=== PATIENT | female | born 2000 | race Hispanic/Latino ===

== ENCOUNTER 2022-04-21 00:35 | Emergency (ER) | payer OTHER ==
[2022-04-21] MEDS ORDERED: LEVALBUTEROL 1.25 MG/3 ML NEB ONE (00:42)
[2022-04-21] MEDS ORDERED: METHYLPREDNISOLONE 125 MG INJ ONE (00:42)
[2022-04-21 00:59] LABS: Absolute Lymphocytes (CBC) 5.1 K/uL (0.7-4.9); Hematocrit 40.6 % (36.0-45.0); Lymphocytes % 37.4 % (15.3-44.8); MCV 81.6 fL (80-100); MPV 8.3 fL (7.6-11.3); RBC Red Blood Cell Count 4.98 M/uL (3.86-4.86)
[2022-04-21 01:12] LABS: Potassium 3.5 mmol/L (3.5-5.1)
[2022-04-21 01:34] LABS: SARS-COV-2 RT PCR NEGATIVE (NEGATIVE)
--- NOTE | 2022-04-21 01:43 | ER ---
Nurse's Notes [facility] Name: Dot Cuba Age: 21 yrs Sex: Female : 2000 Arrival Date: 04/21/2022 Time: 00:37 Bed 8 Private MD: Diagnosis: Unspecified asthma with (acute) exacerbation Presentation: 04/21 00:43 Chief complaint: Patient states: SOB Cough and wheezing since 1500 hx of asthma from out of town did not bring medications. Coronavirus screen: Vaccine status: Patient reports receiving the 2nd dose of the covid vaccine. [place]. Ebola Screen: Patient negative for fever greater than or equal to 101.5 degrees Fahrenheit, and additional compatible Ebola Virus Disease symptoms. Initial Sepsis Screen: Does the patient meet any 2 criteria? No. Patient's initial sepsis screen is negative. Does the patient have a suspected source of infection? No. Patient's initial sepsis screen is negative. Risk Assessment: Do you want to hurt yourself or someone else? Patient reports no desire to harm self or others. 00:43 Method Of Arrival: Ambulatory 00:43 Acuity: GRICELDA 3 Triage Assessment: 00:45 General: Appears distressed, uncomfortable, well groomed, well developed, Behavior is calm, cooperative. Pain: Denies pain. Respiratory: Reports shortness of breath cough that is non-productive, Airway is patent Trachea midline Respiratory effort is even, unlabored, Onset: The symptoms/episode began/occurred today, the patient has moderate shortness of breath. 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 - Hospitalizations: : No recent hospitalization is reported. Screenin:46 Abuse screen: Denies threats or abuse. Nutritional screening: No deficits noted. Tuberculosis screening: No symptoms or risk factors identified. Fall Risk None identified. Assessment: 00:47 Cardiovascular: Rhythm is sinus tachycardia. Respiratory: Airway is patent Trachea midline Respiratory effort is even, unlabored, Breath sounds are clear bilaterally. Vital Signs: 00:43 BP 110 / 79; Pulse 100; Resp 20; Temp 98.3(O); Pulse Ox 99% on R/A; Weight 90.72 kg (R); Height 5 ft. 3 in. (160.02 cm); Pain 0/10; 00:43 Body Mass Index 35.43 (90.72 kg, 160.02 cm) ED Course: 00:37 Patient arrived in ED. tw5 00:37 Ramon Hannah MD is Attending Physician. rn 00:45 Triage completed. kl 00:45 Inserted saline lock: 20 gauge in right hand, using aseptic technique. pf1 00:45 Arm band placed on Patient placed in an exam room, on a stretcher, on pulse oximetry. ll3 00:48 Kimberlyn glover, RAYMOND is Primary Nurse. pf1 00:48 Patient has correct armband on for positive identification. Placed in gown. Bed in low pf1 position. Call light in reach. 00:59 XRAY Chest (1 view) In Process Unspecified. EDMS 01:52 No provider procedures requiring assistance completed. IV discontinued, intact, ll3 bleeding controlled, No redness/swelling at site. Pressure dressing applied. Administered Medications: 00:45 Drug: Xopenex (levalbuterol) (3) 1.25 mg Route: Inhalation; ll3 01:46 Follow up: Response: No adverse reaction; Marked relief of symptoms ll3 00:47 Drug: SOLU-Medrol (methylPrednisoLONE) 125 mg Route: IVP; Site: right hand; pf1 01:46 Follow up: Response: No adverse reaction; Marked relief of symptoms ll3 Medication: 01:52 VIS not applicable for this client. ll3 Outcome: 01:42 Discharge ordered by . rn 01:52 Discharged to home ambulatory, with family. ll3 01:52 Condition: stable 01:52 Discharge instructions given to patient, family, Instructed on discharge instructions, follow up and referral plans. medication usage, Demonstrated understanding of instructions, follow-up care, medications, Prescriptions given X 2. 01:53 Patient left the ED. ll3 Signatures: Dispatcher [employer] EDCO Melissa Hester RN RN Ramon Hannah MD MD rn Wood, Tiffany tw5 Matty Alcantara RN RN 3 Kimberlyn glover, RAYMOND RN pf1 Corrections: (The following items were deleted from the chart) 00:48 00:47 Inserted saline lock: 20 gauge in right hand, using aseptic technique. pf1 pf1
--- NOTE | 2022-04-21 01:43 | EDPHYS ---
Physician Documentation [facility] Name: Dot Cuba Age: 21 yrs Sex: Female : 2000 Arrival Date: 04/21/2022 Time: 00:37 Bed 8 Private MD: ED Physician Ramon Hannah HPI: 04/21 00:40 This 21 yrs old Female presents to ER via Unassigned with complaints of rn Shortness Of Breath. 00:40 The patient has shortness of breath at rest. Onset: The symptoms/episode began/occurred rn today. Duration: The symptoms are continuous. The patient's shortness of breath is aggravated by coughing, is alleviated by nothing. Associated signs and symptoms: Pertinent positives: non-productive cough, Pertinent negatives: dizziness, fever, hemoptysis, loss of consciousness. Severity of symptoms: At their worst the symptoms were moderate in the emergency department the symptoms have improved. The patient has experienced similar episodes in the past. The patient has not recently seen a physician. Pt reports cough/congestion that began today along with sob and wheezing. Has hx of asthma. Reported sob. . 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 - Hospitalizations: : No recent hospitalization is reported. ROS: 00:40 Constitutional: Negative for fever, chills, and weight loss, Eyes: Negative for injury, rn pain, redness, and discharge, ENT: + congestion Neck: Negative for injury, pain, and swelling, Cardiovascular: Negative for chest pain, palpitations, and edema, Respiratory: + cough and wheezing Abdomen/GI: Negative for abdominal pain, nausea, vomiting, diarrhea, and constipation, Back: Negative for injury and pain, MS/Extremity: Negative for injury and deformity, Skin: Negative for injury, rash, and discoloration, Neuro: Negative for headache, weakness, numbness, tingling, and seizure. Exam: 00:40 Constitutional: This is a well developed, well nourished patient who is awake, alert, rn anxious and tearful Head/Face: Normocephalic, atraumatic. Eyes: Periorbital areas with no swelling, redness, or edema. ENT: no stridor Cardiovascular: Regular rate and rhythm. No pulse deficits. Respiratory: Mild tachypnea, no retractions, faint wheezing bilaterally Skin: Warm, dry MS/ Extremity: Pulses equal, no cyanosis. Neuro: Awake and alert, GCS 15 Vital Signs: 00:43 BP 110 / 79; Pulse 100; Resp 20; Temp 98.3(O); Pulse Ox 99% on R/A; Weight 90.72 kg kl (R); Height 5 ft. 3 in. (160.02 cm); Pain 0/10; 00:43 Body Mass Index 35.43 (90.72 kg, 160.02 cm) kl MDM: 00:37 Patient medically screened. rn 01:40 Differential diagnosis: Anxiety Reaction asthma, Bronchitis pneumonia, Pneumothorax rn reactive airway disease. Data reviewed: vital signs, nurses notes, lab test result(s), radiologic studies, plain films, and as a result, I will discharge patient. Counseling: I had a detailed discussion with the patient and/or guardian regarding: the historical points, exam findings, and any diagnostic results supporting the discharge/admit diagnosis, lab results, radiology results, the need for outpatient follow up, to return to the emergency department if symptoms worsen or persist or if there are any questions or concerns that arise at home. Response to treatment: the patient's symptoms have resolved after treatment, the patient's condition has returned to base line, the patient is now symptom free, and as a result, I will discharge patient. Special discussion: I discussed with the patient/guardian in detail that at this point there is no indication for admission to the hospital. It is understood, however, that if the symptoms persist or worsen the patient needs to return immediately for re-evaluation. ED course: Pt markedly improved, afebrile, neg covid/flu, neg cxr, patient believes is just allergies and does not feel sick. Will dc home with steroids and inhaler as she is out of town. . 04/21 00:38 Order name: CBC with Diff; Complete Time: rn 04/21 00:38 Order name: Basic Metabolic Panel; Complete Time: rn 04/21 00:38 Order name: XRAY Chest (1 view) rn 04/21 00:38 Order name: COVID-19/FLU A+B; Complete Time: rn 04/21 00:38 Order name: IV Start; Complete Time: : rn 04/21 00:38 Order name: Cardiac monitoring; Complete Time: 01:09 rn 04/21 00:38 Order name: O2 Sat Monitoring; Complete Time: 01:06 rn Administered Medications: 00:45 Drug: Xopenex (levalbuterol) (3) 1.25 mg Route: Inhalation; ll3 01:46 Follow up: Response: No adverse reaction; Marked relief of symptoms ll3 00:47 Drug: SOLU-Medrol (methylPrednisoLONE) 125 mg Route: IVP; Site: right hand; pf1 01:46 Follow up: Response: No adverse reaction; Marked relief of symptoms ll3 Disposition Summary: 04/21/22 01:42 Discharge Ordered Location: Home rn Problem: an acute exacerbation rn Symptoms: have improved rn Condition: Stable rn Diagnosis - Unspecified asthma with (acute) exacerbation rn Followup: rn - With: Private Physician - When: As needed - Reason: Recheck today's complaints, Re-evaluation by your physician Discharge Instructions: - Discharge Summary Sheet rn - Asthma, Adult rn Forms: - Medication Reconciliation Form rn - Thank You Letter 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
[2022-04-21 01:59] VITALS: BP 110/79; TEMP 98.3; O2SAT 99
--- NOTE | 2022-04-21 18:01 | RAD REPORT ---
EXAM DESCRIPTION: RAD - Chest Single View - 04/21/2022 12:58 am CLINICAL HISTORY: Cough COMPARISON: None. FINDINGS: Single frontal radiograph view of the chest. Cardiomediastinal silhouette: Normal size and contour. Lungs: No consolidation, pneumothorax, or pleural effusion. Bones: No acute osseous abnormality. Upper abdomen: No abnormality identified. IMPRESSION: 1. No acute pulmonary process identified. 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 The interpreting radiologist is fully responsible for the content of the report.
== END 2022-04-21 01:53 | disposition home or self-care (01) ==
LOC: ER 00:35
DX: J45.901 Unspecified asthma with (acute) exacerbation (principal); Z20.822 Contact with and (suspected) exposure to COVID-19
CPT/HCPCS: 85025; 80048; 36415; 0240U; 71045; 96374; 99285; J7614; J2930